=== PATIENT | male | born 1945 | race Caucasian/White ===

== ENCOUNTER → 2018-06-06 | Outpatient (REF) | payer MEDICARE ==
[~2018-06-06] MED LIST: ASP325 PO; CEP500 PO; PSE30 PO; ZICAM
[2018-06-06 16:02] LABS: PLATELET COUNT, AUTOMATED 175 K/uL (150-450)
== END ==
LOC: ZZSTITCHES 15:44
PROVIDERS: ATTEND Physician Assistant
DX: R07.89 Other chest pain (principal); R06.02 Shortness of breath
CPT/HCPCS: 82040; 82247; 82310; 82374; 82435; 82565; 82947; 83880; 84075; 84132; 84155; 84295; 84450; 84460; 84484; 84520; 85025

== ENCOUNTER → 2018-07-13 | Outpatient (CLI) | payer MEDICARE | LOC: US 06:57 | PROVIDERS: ATTEND Internal Medicine Cardiovascular Disease | DX: I48.0 Paroxysmal atrial fibrillation (principal) | CPT/HCPCS: 93306 ==

== ENCOUNTER → 2019-01-05 | Outpatient (REF) | payer MEDICARE | LOC: ZZSTITCHES 15:48 | PROVIDERS: ATTEND Physician Assistant | DX: I50.23 Acute on chronic systolic (congestive) heart failure (principal) | CPT/HCPCS: 83880 ==